=== PATIENT | male | born 1960 | race Caucasian/White ===

== ENCOUNTER → 2016-09-03 | Outpatient (CLI) | payer BC, OTHER ==
[~2016-09-03] VITALS: Ht 177.8 cm; Wt 108.9 kg
[~2016-09-03] MED LIST: ASPIR 8181 M1 PO; ATORVASTATIN CA40 MG PO; CELEXA20 MG PO; COREG6.25 MG PO; LISINOPRIL10 MG PO
--- NOTE | ~2016-09-03 | EKG ---
[place] [address] [facility] [place] [employer] [place] [address] ELECTROCARDIOGRAM REPORT Name: MICHAEL GARCIA Room #: REG [facility]#: [id number] Admission: 09/03/16 Attend Phys: Juan Alberto Patterson MD Discharge: Date of : 56 Report #: [id number] THIS REPORT FOR: //name// [facility] Test Date: 2016-09-03 Test Time: 07:10:28 Pat Name: MICHAEL GARCIA Department: Room: Gender: Special Population Paraprofessional: Jazmyn MONSALVE : 1960 Requested By: Juan Alberto Patterson Order Number: [id number] MD: Martinez Aguilar Measurements Intervals [place] Rate: 69 P: 30 IA: 165 QRS: 79 QRSD: 106 T: -83 QT: 417 QTc: 447 Interpretive Statements Sinus rhythm Probable LVH with secondary repol abnrm Compared to ECG 03/21/2009 07:38:11 No significant change was found Electronically Signed On 09-03-2016 7:50:24 CDT by Martinez Aguilar [email or web address] <ELECTRONICALLY SIGNED> By: Martinez Aguilar MD, [facility] 09/03/16 0750 D: 07/709 9 Martinez Aguilar MD, FACC /EPI
--- NOTE | ~2016-09-03 | CATHLAB ---
[facility] [address] [place] [address] INVASIVE PROCEDURE REPORT Name: MICHAEL GARCIA [id number] Admission: 09/03/16 Attend Phys: Juan Alberto Patterson MD Discharge: Date of : 56 Date of Service: 09/03/16 1005 Report #: [id number] THIS REPORT FOR: //name// APPROVED REPORT Patient Details Patient Status: Out-Patient Room #: The patient is a 56 year-old male Event Personnel Juan Alberto Patterson Slurry Tank Operator, Davey Neri Monitor, Alicia Grant Monitor, Brigitte Soliman ScrubBrian Carol RN modeling instructor Performed Left Heart Cath Coronaries, Bypass Grafts [id number] [facility] , Coronary Angiography with grafts, Left Heart Catheterization Indication Dyspnea, Positive stress test Risk Factors Chronic Lung DiseaseHypercholesterolemia, Coronary Artery DiseaseHypertension, Tobacco History () Procedure Narrative The was infiltrated with 1% Lidocaine subcutaneous anesthesia. A PINNACLE 4FR Sheath #[id number] sheath was inserted into the RFA^. Coronary angiography was performed using coronary diagnostic catheters. The right coronary system was accessed and visualized with a JR4 catheter. The left coronary system was accessed and visualized with a JL4 catheter. The left ventricle was accessed and visualized with a PIGTAIL catheter. Left ventricular/Aortic Valve gradient assessed via catheter pullback. Left ventriculogram was performed in 30 degree projection. Hemostasis was obtained with manual pressure following sheath removal without any complications. The patient tolerated the procedure well and there were no complications associated with the procedure. There was no hematoma. Intraoperative Conscious Sedation Sedation start time: 8:24 Case end Time: 8:54 Fentanyl 25.0 mcg Versed 1.0 mg [facility] [address] [place] [address] INVASIVE PROCEDURE REPORT Name: MICHAEL GARCIA EMELY Room #: REG [facility]#: [id number] Admission: 09/03/16 Attend Phys: Juan Alberto Patterson MD Discharge: Date of : 56 Date of Service: 09/03/16 1005 Report #: [id number] Fluoro Time: 9.21 minutes Dose: 854 mGy Contrast Type and Amount: Omnipaque 120 ml Coronary Angiography The patient's coronary anatomy is right dominant. [place] Artery Percent Stenosis Left Main: 30 % Prox LAD: 75 % Mid/Distal LAD: % Circumflex: 100 % RCA: 100 % Ramus: % Grafts (Complete if Previous CABG=Yes: Percent Stenosis) Diagnostic Cath LAD Patent HERNANDEZ to mid-segment Diagonal 1 70% mid stenosis (small-moderate caliber) - Medical therapy Circumflex Patent sequential SVG to OM1 and OM2. Right Coronary Patent SVG to PDA, with both anterograde and retrograde flow (filling of RPL- has ostial 70% stenosis- rec. Medical therapy). Left Ventriculography The left ventricular ejection fraction is estimated to be 35-40%. Left ventricular wall motion abnormalities are present. Hemodynamics The aortic pressure is 165/93 mmHg with a mean of 119 mmHg. The left ventricular pressure is 184/17 mmHg with a mean of mmHg. The left ventricular end diastolic pressure is 42 mmHg. There was no gradient across the aortic valve upon pullback. Pullback from the left ventricle to the aorta revealed no gradient across the aortic valve. Conclusion Patent grafts to LAD, OM1 and 2, PDA. Rec. medical therapy. Recommendations Smoking Cessation Medical Therapy <ELECTRONICALLY SIGNED> By: Juan Alberto Patterson MD 09/03/16 1005 100 100 Juan Alberto Patterson MD /INF
[2016-09-03 07:21] VITALS: BP 181/93
[2016-09-03 07:28] LABS: HEMATOCRIT 44.3 % (42.0-52.0); MCH 31.3 pg (26.0-34.0); MCHC 33.8 g/dL (28.0-37.0); MCV 92.7 fL (80.0-100.0); RBC 4.78 mil/uL (4.50-6.00); RDW 14.4 % (10.5-14.5); WBC 7.9 thou/uL (4.0-11.0)
[2016-09-03 07:47] LABS: ANION GAP 6 mmol/L (7-16); BUN 13 mg/dL (7-18); CALCIUM 9.1 mg/dL (8.5-10.1); CHLORIDE 109 mmol/L (98-107); CHOLESTEROL 124 mg/dL (<200); CO2 28 mmol/L (21-32); CREATININE 0.9 mg/dL (0.7-1.3); GLUCOSE 126 mg/dL (74-106); HDL CHOLESTEROL 39 mg/dL (>40); LDL CHOLESTEROL 67 mg/dL (<100); POTASSIUM 4.1 mmol/L (3.5-5.1); SODIUM 143 mmol/L (136-145); TC:HDL 3.2 Ratio (Not establshd); TRIGLYCERIDE 90 mg/dL (<150); VLDL 18 mg/dL (<40)
== END | disposition home or self-care (01) ==
LOC: CATH 06:41
PROVIDERS: Internal Medicine Cardiovascular Disease
DX: I25.10 Atherosclerotic heart disease of native coronary artery without angina pectoris (principal); J98.4 Other disorders of lung; E78.00 Pure hypercholesterolemia, unspecified; I10 Essential (primary) hypertension; F17.210 Nicotine dependence, cigarettes, uncomplicated; I25.2 Old myocardial infarction; J44.9 Chronic obstructive pulmonary disease, unspecified; Z95.1 Presence of aortocoronary bypass graft; Z98.890 Other specified postprocedural states; Z82.49 Family history of ischemic heart disease and other diseases of the circulatory system; Z79.899 Other long term (current) drug therapy

== ENCOUNTER → 2017-04-10 | Outpatient (CLI) | payer BC, OTHER | LOC: RAD 14:19 | DX: R06.00 Dyspnea, unspecified (principal) ==

== ENCOUNTER → 2018-02-02 | Outpatient (CLI) | payer BC, OTHER | LOC: NUC 01-12 11:46 | DX: I25.10 Atherosclerotic heart disease of native coronary artery without angina pectoris (principal); I10 Essential (primary) hypertension; E78.5 Hyperlipidemia, unspecified; J44.9 Chronic obstructive pulmonary disease, unspecified; E66.9 Obesity, unspecified; Z87.891 Personal history of nicotine dependence ==

== ENCOUNTER → 2019-09-02 | Outpatient (CLI) | payer BC, OTHER | LOC: SJCVCIMAG 08:57 | PROVIDERS: ATTEND Internal Medicine Cardiovascular Disease | DX: I35.8 Other nonrheumatic aortic valve disorders (principal); I11.9 Hypertensive heart disease without heart failure; I25.10 Atherosclerotic heart disease of native coronary artery without angina pectoris; J44.9 Chronic obstructive pulmonary disease, unspecified; Z95.1 Presence of aortocoronary bypass graft ==